=== PATIENT | male | born 1970 | race Caucasian/White ===

== ENCOUNTER → 2023-12-26 15:48 | Outpatient (BNVA) | payer OTHER, SELFPAY | PROVIDERS: PCP Family Medicine; Visit Provider Family Medicine | DX: Z12.5 Encounter for screening for malignant neoplasm of prostate (principal); Z00.00 Encounter for general adult medical examination without abnormal findings; E78.5 Hyperlipidemia, unspecified; I10 Essential (primary) hypertension; F41.0 Panic disorder [episodic paroxysmal anxiety]; F41.1 Generalized anxiety disorder | CPT/HCPCS: 80053; 80061; 85025; G0103 ==

== ENCOUNTER → 2025-05-26 16:22 | Outpatient (BNVA) | payer BC, SELFPAY | PROVIDERS: PCP Family Medicine; Visit Provider Family Medicine | DX: I10 Essential (primary) hypertension (principal); E78.5 Hyperlipidemia, unspecified | CPT/HCPCS: 80053; 80061 ==

== ENCOUNTER 2025-06-20 08:33 | Outpatient (CLI) | payer BC, SELFPAY ==
--- NOTE | 2025-06-20 08:48 | XR_ITS ---
WS: [id number] XR foot LT min 3V* [id number] REASON FOR EXAM: acute injury, pain swelling over metatarsals FINDINGS: No fracture or periosteal reaction. Normal sesamoids. The joint spaces of the forefoot, midfoot, and hindfoot are intact and well preserved. No radiopaque soft tissue foreign body. XR/XR foot LT min 3V* [id number] IMPRESSION: No significant bone or joint abnormality.
== END 2025-06-20 08:34 | disposition home or self-care (01) ==
PROVIDERS: PCP Family Medicine; Visit Provider Family Medicine
DX: S99.922A Unspecified injury of left foot, initial encounter (principal); X58.XXXA Exposure to other specified factors, initial encounter
CPT/HCPCS: 73630

== ENCOUNTER → 2025-06-26 09:12 | Outpatient (BNVA) | payer BC, SELFPAY | PROVIDERS: PCP Family Medicine; Visit Provider Podiatrist Foot & Ankle Surgery | DX: S93.322A Subluxation of tarsometatarsal joint of left foot, initial encounter (principal); W01.0XXA Fall on same level from slipping, tripping and stumbling without subsequent striking against object, initial encounter | CPT/HCPCS: 73630 ==

== ENCOUNTER 2025-07-01 09:34 | Outpatient (CLI) | payer BC, SELFPAY ==
--- NOTE | 2025-07-01 14:30 | MRR_ITS ---
PROCEDURE INFORMATION: Exam: MR Left Lower Extremity Other Than Joint Without Contrast; Foot Exam date and time: 07/01/2025 10:13 AM Age: 54 years old Clinical indication: Left; Fall x one week, pain & bruising all over lt foot; Additional info: Injury to left foot, patient prefers only feet in TECHNIQUE: Imaging protocol: Magnetic resonance imaging of the left lower extremity without contrast. Exam focused on the foot. COMPARISON: CR XR foot LT min 3V* [id number] 06/26/2025 9:21 AM FINDINGS: Bones/joints: Normal alignment. No focal osseous lesion. No acute fracture. Moderate patchy bone marrow edema in the middle and lateral cuneiforms, into a lesser extent within the medial cuneiform, cuboid, and the 2nd through 4th metatarsal bases is noted. No definite discrete fracture lines are identified. LIGAMENTS: Lisfranc ligament: Unremarkable. No evidence of tear. TENDONS: Flexor tendons of foot: Mild abnormal fluid in the flexor digitorum longus tendon sheath is present. Tibialis posterior tendon: Mild abnormal fluid in the tibialis posterior tendon sheath is noted. Peroneal tendons: Unremarkable as visualized. Extensor tendons of foot: Unremarkable. No evidence of tear. Tibialis anterior tendon: Unremarkable as visualized. Tarsal canal (Sinus tarsi): Unremarkable. Tarsal tunnel: Unremarkable. Soft tissues: A mild degree of diffuse subcutaneous edema is present, greatest in the dorsum of the foot. There is moderate interosseous muscle edema surrounding the proximal 2nd and 3rd metatarsals and in the adductor hallucis muscle. Mild abnormal intermetatarsal bursal fluid between the 1st and 2nd metatarsal heads is noted. Plantar fascia: Unremarkable as visualized. MR/MR foot LT wo con* [id number] IMPRESSION: 1. Multifocal regions of bone marrow edema are noted involving the cuneiforms, cuboid, and the bases of the 2nd through 4th metatarsals. The appearance is suggestive of bone contusions without definite evidence of fracture. Subtle cortical fractures may be better assessed with CT as clinically indicated. 2. Mild subcutaneous edema is greatest dorsally, compatible with contusion in the setting of trauma. 3. Mild tibialis posterior tenosynovitis. 4. Mild flexor digitorum longus tenosynovitis. 5. Interosseous muscular edema surrounding the proximal 2nd and 3rd metatarsals and in the abductor hallucis muscle is noted, consistent with strain or contusion. 6. Mild intermetatarsal bursitis at the 1st-2nd metatarsal interspace.
== END 2025-07-01 09:35 | disposition home or self-care (01) ==
LOC: RAD 09:35
PROVIDERS: PCP Family Medicine; Visit Provider Podiatrist Foot & Ankle Surgery
DX: S93.322A Subluxation of tarsometatarsal joint of left foot, initial encounter (principal); S96.212A Strain of intrinsic muscle and tendon at ankle and foot level, left foot, initial encounter; W19.XXXA Unspecified fall, initial encounter; M76.822 Posterior tibial tendinitis, left leg; M77.51 Other enthesopathy of right foot and ankle; M65.872 Other synovitis and tenosynovitis, left ankle and foot; S96.1 Injury of muscle and tendon of long extensor muscle of toe at ankle and foot level
CPT/HCPCS: 73718

== ENCOUNTER → 2025-08-27 13:38 | Outpatient (BNVA) | payer BC, SELFPAY | PROVIDERS: PCP Family Medicine; Visit Provider Family Medicine | DX: E78.5 Hyperlipidemia, unspecified (principal) | CPT/HCPCS: 80061 ==